=== PATIENT | female | born 1935 | race Caucasian/White ===

== ENCOUNTER 2017-06-04 18:52 | Observation (INO) | payer MEDICARE, BC ==
[~2017-06-04] VITALS: Ht 163.8 cm; Wt 96.2 kg
--- NOTE | ~2017-06-04 | DS ---
PATIENT:NICHOLAS WOLF :35 MEDICAL RECORD: [id number] DISCHARGE SUMMARY ADMISSION DATE: 06/04/17 DISCHARGE DATE: 06/05/17 DISCHARGE DIAGNOSES: 1. Angina. 2. Coronary artery disease. 3. Hypertension. 4. Hyperlipidemia. HOSPITAL COURSE: Mrs. Wolf presents with anginal symptomatology, found to have single vessel disease to the RCA, underwent successful PTCA stent of the RCA. Discharged home with the addition of Plavix times 30 days to her medical regimen. We will follow up with [facility] in 1 month. TRANSINT:[id number] Voice Confirmation ID: [id number] DOCUMENT ID: [id number] LOC DIALLO MD CC: [id number] DICTATION DATE: 06/05/171711 TOOL MACHINE SETUP OPERATOR: 06/06/17 0138 DIS IN 06/05/17 [facility] [address] [place] [address]
--- NOTE | ~2017-06-04 | HEMODYNAMI ---
PATIENT:NICHOLAS CARROLL MEDICAL RECORD: [id number] : 35 [id number] ADMISSION DATE: 06/04/17 Generatedon:06/05/201717:07 Patient name: NICHOLAS CARROLL Patient #: [id number] SSN: : 1935 Date of study: 06/05/2017 Page: Of Hemodynamic Procedure Report Patient Data Patient Demographics Procedure consent was obtained First Name: NICHOLAS Gender: Female Last Name: GLEN : 1935 Middle Initial: S Age: 81 year(s) Patient #: [id number] Race: Unknown Additional ID: [id number] Contact details [address]: [address] [place] [address] State: [place] City: [place] Zip code: [address] Past Medical History Allergies Allergen Reaction Date Comments Reported Other allergy 06/05/2017 PCN, Sulfa Admission Admission Data Admission Date: 06/04/2017 Admission Time: 22:51 Room #: D.2120 Height (in.): 64.5 BSA: 2.02 (m2) Height (cm.): 163.83 BMI: 35.99 (kg/m2) Weight (lbs.): 212.95 Weight (kg.): 96.59 Lab Results Lab Result Date: 06/05/2017 Lab Result Time: 0:00 Biochemistry Name Units Result Min Max BUN mg/dl 18 --(---*)-- 7 18 CK-MB ng/ml 0.7 --(*---)-- 0 3.6 Creatinine mg/dl 1.1 --(--*-)-- 0.6 1.3 Creatinine l 52 --(*---)-- 21 215 Kinase CBC Name Units Result Min Max Hemoglobin g/dl 13.4 -*(----)-- 13.5 17.5 Procedure Procedure Types Cath Procedure Diagnostic Procedure [facility] w/Coronaries FFR/IVUS Intra-Coronary IVUS Initial PCI Procedure Coronary Stent Initial Miscellaneous Procedures Moderate Sedation up to 15 minutes Procedure Description Procedure Date Procedure Date: 06/05/2017 Procedure Start Time: 16:47 Procedure End Time: 17:05 Procedure Staff Name Function Jason Alvarez MD Performing Physician Parrish Collins RT Scrub Lindy Fagan RT Monitor Donny Chen RT Monitor Joanne Gasca RN Nurse Procedure Data Cath Procedure Fluoroscopy Diagnostic fluoroscopy Total fluoroscopy Time: 3.8 time: 3.8 min min Diagnostic fluoroscopy Total fluoroscopy dose: 992 dose: 992 mGy mGy Contrast Material Contrast Material Type Amount (ml) Isovue 300 84 Entry Location Entry Primary Successful Side Size Upsize Upsize Entry Closure Sullivan ccessful Closure Location (Fr) 1 (Fr) 2 (Fr) Remarks Device Remarks Radial Right 6 Fr Mechanical TR band artery Short Compression Estimated blood loss: 10 ml Diagnostic catheters Device Type Used For End Catheter Placement Diagnostic Terumo 5Fr Procedure Stonewall 110cm catheter Procedure Complications No complications Procedure Medications Medication Administration Route Dosage Oxygen NC 2 l/min Lidocaine 2% added to field 20 Heparin Flush Bag added to field 2 bags (1000units/500ml NS) 0.9% NaCl I.V. 100 ml/hr Versed I.V. 1 mg Fentanyl I.V. 50 mcg Radial Cocktail I.A. 1 syringe (Verapomil 2mg/Nitro 400mcg/Heparin 1500units) Versed I.V. 1 mg Fentanyl I.V. 50 mcg Heparin Bolus I.V. 4000 units Hemodynamics Rest BSA: 2.02 (m2) HGB: 13.4 (g/dl) O2 Consumption: Estimated: 187.32 (ml/min) O2 Co nsumption indexed: Estimated:92.73 (ml/min/m) Heart Rate: 78 (bpm) Snapshots Pre Cath Intra NCS Post Cath Vital Signs Time Heart Resp SPO2 NIBP (mmHg) Rhythm Pain Sedation Rate (ipm) (%) Status Level (bpm) 16:37:55 77 16 96 149/76(118) NSR 0 (11) 10(A) , No pain 16:42:13 78 14 95 136/73(97) NSR 0 (11) 10(A) , No pain 16:46:27 79 15 95 130/69(100) NSR 0 (11) 10(A) , No pain 16:50:49 83 16 94 106/41(81) NSR 0 (11) 9(A) , No pain 16:54:53 82 16 95 114/64(83) NSR 0 (11) 9(A) , No pain 16:59:01 81 14 94 120/62(87) NSR 0 (11) 9(A) , No pain 17:03:09 81 16 94 96/77(84) NSR 0 (11) 10(A) , No pain Medications Time Medication Route Dose Verified Delivered Reason Note s Effectiveness by by 16:37:20 Oxygen NC 2 l/min Jason Buffie used for Antonio Gasca RN procedure 16:37:26 Lidocaine 2% added 20ml Jason Jason for local to vial Antonio Alvarez MD anesthetic field 16:37:33 Heparin Flush added 2 bags Jason Gomez used for Bag to Antonio Alvarez MD procedure (1000units/500ml field NS) 16:38:27 0.9% NaCl I.V. 100 Jason Rubio Per physician ml/hr Antonio Gasca RN 16:42:54 Versed I.V. 1 mg Jason Garciaie for sedation Antonio Gasca RN 16:43:01 Fentanyl I.V. 50 mcg Jason Garciaie for sedation Antonio Gasca RN 16:47:25 Radial Cocktail I.A. 1 Jason Gomez for (Verapomil syringe Antonio Alvarez MD vasodilation 2mg/Nitro 400mcg/Heparin 1500units) 16:47:45 Versed I.V. 1 mg Jason Garciaie for sedation Antonio Gasca RN 16:47:49 Fentanyl I.V. 50 mcg Jason Rubio for sedation Antonio Gasca RN 16:52:46 Heparin Bolus I.V. 4000 Jasonginger Garciaie for veri fied units Antonio Gasca RN anticoagulation with dr alvarez Procedure Log Time Note 16:14:56 Patient Height : 163.83 cm 16:15:03 Patient Weight : 96.59 kg 16:15:17 Procedure type changed to Cath procedure, Diagnostic procedure, LHC, C w/Coronaries, FFR/IVUS, Intra-Coronary IVUS Initial, PCI procedure, Coronary Stent Initial, Miscellaneous Procedures, Moderate Sedation up to 15 minutes 16:16:42 Lab Result : BUN 18 mg/dl 16:16:42 Lab Result : Creatinine Kinase 52 l 16:16:42 Lab Result : Hemoglobin 13.4 g/dl 16:16:42 Lab Result : Creatinine 1.1 mg/dl 16:16: Lab Result : CK-MB 0.7 ng/ml 16:16:56 Diagnostic Cath status Elective 16:17:03 Parrish Collins RT(R) sent for patient. Start room use. 16:17:04 Time tracking: Regular hours 16:17:09 Plan of Care:Hemodynamics will remain stable., Cardiac rhythm will remain stable., Comfort level will be maintained., Respiratory function will remain adequate., Patient/ family verbilizes understanding of procedure., Procedure tolerated without complication., Recovers from procedure without complications.. 16:17:44 Patient received from Med II to [facility] 2 Alert and oriented. Tansferred to table in Supine position. 16:23:27 Warm blankets applied, and janis hugger turned on for patient comfort. 16:23:27 Correct patient and procedure confirmed by team. 16:23:37 Signed procedure consent form obtained from patient. 16:23:43 H&P Date Dictated: 06/05/2017 Within 30 days and on chart.. 16:23:45 Pre-procedure instructions explained to patient. 16:23:52 Pre-op teaching completed and patient verbalized understanding. 16:23:53 Family in waiting room. 16:23:57 Patient NPO since Midnight. 16:24:37 Patient allergic to Other allergyPCN, Sulfa 16:24:41 Is the patient allergic to Iodine/contrast media? No. 16:24:49 Was the patient premedicated? Yes 16:24:53 Is patient on blood thinner?Yes 16:24:56 ACC The patient was administered the following blood thiners within the last 24 hours: ACCPlavix 16:25:16 Patient diabetic? No. 16:25:24 Snore? Yes 16:25:25 Sleep apnea? Yes 16:25:30 Airway obstruction? No ? 16:25:33 Dentures? No ? 16:25:54 IV patent on arrival in left forearm with 0.9% NaCl at [facility]. 16:26:21 Lab results completed and on chart. 16:26:28 Right Radial & Right Groin area was prepped with chlora-prep and draped in sterile fashion 16:: Alarms reviewed by R. N. 16::32 Sharps counted by scrub and verified by R.N. : Physician paged : Physician arrived 16:35:00 --------ALL STOP TIME OUT------ 16:35:08 Final Timeout: patient, procedure, and site verified with staff and physician. All members of the team are in agreement. 16:35:10 Right Radial & Right Groin site verified by team. 16:35:16 Sedation plan: IV Moderate Sedation Versed, Fentanyl 16:36:44 ECG and BP/O2 sat monitors applied to patient. 16:36:45 Vital chart was started 16:36:46 Baseline sample Acquired. 16:36:50 Full Disclosure recording started 16:36:58 Use device set Radial Dx 16:37:00 Acist Syringe opened to sterile field. 16:37:00 Medline Cath Pack opened to sterile field. 16:37:01 Bag Decanter opened to sterile field. 16:37:01 Terumo 6Fr Slender Glidesheath opened to sterile field. 16:37:02 St Ed 260cm J .035 wire opened to sterile field. 16:37:02 Acist Hand Control opened to sterile field. 16:37:03 Acist Manifold opened to sterile field. 16:37:03 Tegaderm 4 x 4 opened to sterile field. 16:37:04 MBrace Wrist Support opened to sterile field. 16:37:20 Oxygen 2 l/min NC was administered by Joanne Gasca RN; used for procedure; 16:37:26 Lidocaine 2% 20ml vial added to field was administered by Jason Alvarez MD; for local anesthetic; 16:37:33 Heparin Flush Bag (1000units/500ml NS) 2 bags added to field was administered by Jason Alvarez MD; used for procedure; 16:38:27 0.9% NaCl 100 ml/hr I.V. was administered by Joanne Gasca RN; Per physician; 16:42:54 Versed 1 mg I.V. was administered by Joanne Gasca RN; for sedation; 16:43:01 Fentanyl 50 mcg I.V. was administered by Joanne Gasca RN; for sedation; 16:46:45 Procedure started. 16:46:53 Zero performed for pressure channel P1 16:47:07 Local anesthetic to right radial artery with Lidocaine 2% by Jason Alvarez MD.INITIAL ACCESS ONLY 16:47:16 A 6 Fr Short sheath was inserted into the Right Radial artery 16:47:25 Radial Cocktail (Verapomil 2mg/Nitro 400mcg/Heparin 1500units) 1 syringe I.A. was administered by Jason Alvarez MD; for vasodilation; 16:47:41 A Diagnostic Terumo 5Fr Stonewall 110cm catheter was advanced over the wire and used for Procedure. 16:47:45 Versed 1 mg I.V. was administered by Joanne Gasca RN; for sedation; 16:47:47 LV angiography performed. 16:47:49 Fentanyl 50 mcg I.V. was administered by Joanne Gasca RN; for sedation; 16:48:15 EF : 60 % 16:48:18 LCA angiography performed. 16:49:31 RCA angiography performed. 16:49:34 Catheter removed. 16:52:16 Azul Whisper J 300cm 0.014 guide wire opened to sterile field. 16:52:17 [place] Eagleye IVUS Catheter opened to sterile field. 16:52:18 BillGuardtronic Launcher 6Fr [place] 1.0 guide catheter opened to sterile field. 16:52:19 [employer] BasixCompak Inflation Kit opened to sterile field. 16:52:39 6 Fr AR1 guide catheter was inserted over the wire 16:52:41 Wire advanced across lesion. 16:52:46 Heparin Bolus 4000 units I.V. was administered by Joanne Gasca RN; for anticoagulation; verified with dr alvarez 16:52:50 IVUS catheter advanced over wire. 16:53:03 IVUS pass to RCA lesion performed. 16:58:24 IVUS catheter removed over wire. 16:59:39 expiration 08/08/2017 17:00:44 Inflation Number: 1 A Biofreedom 4.0 X 8 stent (No Cost Implant) was prepped and advanced across the Mid RCA. The stent was deployed at 17 MART[address]NE[address] for 0:09 (min:sec). 17:01:19 Stent catheter was removed intact over wire. 17:01:20 Wire removed. 17:01:21 Guide catheter removed. 17:01:41 Sheath removed intact; hemostasis achieved with Mechanical Compression to the Right Radial artery. 17:01:55 Procedure ended.(Physican Out) 17:02:15 Fluoroscopy time 03.80 minutes. 17:02:20 Fluoroscopy dose: 992 mGy 17:02:20 Flurop Dose total: 992 17:02:24 Contrast amount:Isovue 300 84ml. 17:02:26 Sharps counted by scrub and verified by R.N. 17:02:31 TR band inflated with 12cc of air. 17:02:33 Insertion/operative site no bleeding no hematoma. 17:02:50 Post right radial artery:stable 17:02:56 Post Procedure Pulses reassessed and unchanged 17:03:03 Post-procedure physical assessment completed. ASA score P 2 - A patient with mild systemic disease as per Jason Alvarez MD. 17:03:06 Estimated blood loss: 10 ml 17:03:08 Post procedure instruction explained to patient.Patient verbalizes understanding. 17:03:53 Procedure and supply charges have been captured, reviewed, submitted and are correct. 17:05:00 Procedure Complication : No complications 17:05:03 Vital chart was stopped 17:05:03 See physician's report for complete and final results. 17:05:09 Report given to Pre/Post Procedure Room. 17:05:15 Patient transfered to [facility] with Bed. 17:05:18 Procedure ended. 17:05:18 Full Disclosure recording stopped 17:05:21 End room use (Document Last) 17:07:30 ACC-PCI Only Patient was given prescriptions, or instructed by Jason Alvarez MD to start/continue the following medications upon discharge: Plavix Intervention Summary Intervention Notes Time ActionType Lesion and Equipment Action# Pressure Duration Attributes Used 17:00:44 Place stent Mid RCA Biofreedom 1 17 00:09 4.0 X 8 stent (No Cost Implant) Device Usage Item Name Manufacture Quantity Catalog Hospital Part Current Minimal Lot# / Number Charge Number Stock Stock Serial# Code Acist Acist 1 85901 603352 436337 099676 20 Syringe Medical Systems Inc Medline Cardinal 1 [id number] 550587 37501 599904 5 Cath Pack Health Bag Microtek 1 2001S 7455960 93670 517285 5 Wide Limited Release Film Distribution Fund [employer] Inc. Terumo 6Fr Terumo 1 [id number] 771810 390070 380819 [address] St Ed 1 590073 662624 010560 026035 30 260cm J .035 wire Acist Hand Acist 1 45863 182319 115311 800960 5 Control Medical Systems Inc Acist Acist 1 29904 824439 572760 282347 5 Manifold Medical Systems Inc Tegaderm 4 3M 1 1626W 542234 265610 524559 5 x 4 MBrace Advanced 1 140-0250-00 822466 96469 365147 5 Wrist Vascular Support Dynamics Diagnostic Terumo 1 40-4243 595432 815486 841898 5 Terumo 5Fr Stonewall 110cm catheter Azul Azul 1 [id number] 483719 973039 826757 5 Whisper J Vascular 300cm 0.014 guide wire Longford Longford 1 05756G 289742 071039 100185 [address] Eagley[place] IVUS Catheter Medtronic Medtronic 1 [id number] 286358 38439 220622 1 Launcher 6Fr [place] 1.0 guide catheter [facility] 1 [id number] 001539 754554 141794 15 Vaultize Medical Inflation Kit Biofreedom Biosensors 1 BFRC2-1649 350786 876596 5 [id number] 4.0 X 8 [place] SA stent (No Cost Implant) Signature Audit [place] Stage Time Signature Unsigned Intra-Procedure 06/05/2017 Lindy Fagan 5:07:47 PM RT(R) Signatures Monitor : Lindy Fagan Signature : RT Date : Time : Monitor : Donny Chen RT Signature : Date : Time : [place] [id number] [place] [address]
--- NOTE | ~2017-06-04 | OP ---
PATIENT NAME: NICHOLAS CARROLL MEDICAL RECORD: [id number] :35 LOCATION:D.M2 D.2119 ADMISSION DATE:06/04/17 SURGEON: LOC DIALLO MD DATE OF OPERATION: 06/05/2017 PROCEDURES: 1. PTCA stent RCA. 2. Intravascular ultrasound RCA. 3. Left heart catheterization. 4. Selective coronary angiography. 5. Left ventriculogram. INDICATION: Angina and coronary artery disease. PROCEDURE IN DETAIL: After informed consent was obtained and after detailed explanation of risks, benefits as well as alternative therapies, the patient elected to proceed with angiogram and angioplasty. The right radial area was prepped and draped in normal sterile fashion. The right radial artery was cannulated via modified Seldinger technique with placement of 6-Nepali sheath. All catheters exchanged through this sheath. FINDINGS: Left ventriculogram was performed in standard 30-degree PATEL view, reveals good cardiac wall motion throughout all segments. Overall ejection fraction is 60%. SELECTIVE CORONARY ANGIOGRAPHY: 1. Left main has no significant angiographic disease. 2. Left anterior descending has mild irregularities, but no flow-limiting stenosis. 3. Left circumflex has mild irregularities, but no flow-limiting stenosis. 4. Right coronary has previously placed stent in the mid vessel, there is 71% in-stent restenosis confirmed by intravascular ultrasound. PTCA STENT OF THE RCA: The stent used is 4.0 x 8 mm BioFreedom stent. The lesion was a 6-mm lesion. ANTONELLA 3 flow before and after. Result was 0% residual stenosis. OVERALL IMPRESSION: Successful percutaneous transluminal coronary angioplasty stent of the right coronary artery going from 71% initial stenosis confirmed by intravascular ultrasound to 0% residual stenosis. TRANSINT:[id number] Voice Confirmation ID: [id number] DOCUMENT ID: [id number] LOC DIALLO MD CC: [id number] DICTATION DATE: 06/05/171710 SKY DIVER: 06/05/172125 DIS IN 06/05/17 [place] [id number] [place] [id number]
[~2017-06-04 18:52] MED LIST: ASPIRIN 81 MG E81 MG PO; ATENOLOL25 MG NG; BENADRYL25 MG PO; CARAFATE1 G/10 ML PO; COZAAR50 MG PO; DYAZIDE 37.5/251 CAP PO; EFFIENT5 MG PO; EYE CAPS POINH; KLOR-CON 1010 MEQ PO; LIPITOR10 MG PO; LIPITOR20 MG PO; LOZOL1.25 MG PO; PLAVIX75 MG PO; PRAVASTATIN SOD10 MG PO; PREDNISONE10 MG PO; PRINIVIL20 MG PO; PROTONIX40 MG PO; SYNTHROID125 MCG PO; TENORMIN25 MG PO; TENORMIN50 MG PO; VESICARE5 MG PO; VISTARIL25 MG PO; VITAMIN B-12500 MCG PO; VITAMIN D31000 UNIT PO; VITAMIN E200 UNI1 PO
[2017-06-04 19:23] LABS: BASOPHILS 0.8 % (0-2); EOSINOPHILS 4.3 % (0-7); HEMATOCRIT 40.9 % (36.0-48.0); HEMOGLOBIN 13.4 g/dL (12-16); IMMATURE GRANULOCYTES 0.2 % (0-5); LYMPHOCYTES 30.7 % (15-50); MCHC 32.8 g/dL (31.0-37.0); MCV 91.7 fL (80.0-100.0); MEAN PLATELET VOLUME 9.9 fL (7.4-10.4); PLATELET COUNT 201 10x3/uL (130-400); RBC 4.46 10x6/uL (4.00-5.40); RDW 13.8 % (11.5-14.5); WBC 6.5 10x3/uL (4.8-10.8)
[2017-06-04 19:38] LABS: ALBUMIN 3.6 g/dL (3.4-5.0); ALKALINE PHOSPHATASE 99 U/L (46-116); ALT (SGPT) 21 U/L (10-68); BILIRUBIN - TOTAL 0.27 mg/dL (0.2-1.3); CALC OSMOLALITY 278 mosm/kg (275-300); CALCIUM 9.1 mg/dL (8.5-10.1); CARBON DIOXIDE 30.7 mmol/L (21.0-32.0); CHLORIDE - SERUM 102 mmol/L (98-107); CREATININE - SERUM 1.1 mg/dL (0.6-1.3); GLUCOSE 116 mg/dL (74-106); POTASSIUM - SERUM 3.6 mmol/L (3.5-5.1); PROTEIN - SERUM 7.3 g/dL (6.4-8.2); SODIUM 138 mmol/L (136-145); UREA NITROGEN 18 mg/dL (7-18); eGFR NON AFRICAN AMERICAN 50 mL/min (90-120)
[2017-06-04 19:46] LABS: INR 1.1 (0.85-1.17); PROTIME 14.1 SECONDS (11.6-15.0)
[2017-06-04 19:47] LABS: APTT 51.7 SECONDS (22.8-39.4); D-DIMER-QUANTITATIVE 2.44 ug/mLFEU (0.20-0.54)
[2017-06-04 19:48] LABS: CHOL - HDL RATIO 2.7 ratio (2.3-4.1); CHOLESTEROL, TOTAL 148 mg/dL (0-200); CKMB 0.7 U/L (0.0-3.6); CREATINE KINASE 61 UL (21-215); HDL CHOLESTEROL 54 mg/dL (32-96); LDL CHOLESTEROL 55 mg/dL (0-100); PRO BNP 149 pg/mL (0-450); TRIGLYCERIDE 195 mg/dL (30-200); TROPONIN-I < 0.017 ng/mL (0.000-0.060)
--- NOTE | 2017-06-04 23:04 | NUR ---
RECEIVED REPORT FROM KYLE DE IN ER.
--- NOTE | 2017-06-04 23:10 | NUR ---
RECEIVED TO ROOM 2120 FROM ER. ALERT/ORIENTED AND AMBULATORY. ADMISSION ASSESSMENT AND HISTORY COMPLETED. HOME MEDS REVIEWED AND UPDATED. PT IS LEGALLY BLIND. CALL LIGHT IN HAND. INITIATE PLAM OF CARE.
[2017-06-04 23:23] LABS: CKMB 0.7 U/L (0.0-3.6); CREATINE KINASE 52 UL (21-215)
[2017-06-04 23:25] LABS: TROPONIN-I < 0.017 ng/mL (0.000-0.060)
[2017-06-04] MEDS ORDERED: SYNTHROID112 MCG PO (23:46)
[2017-06-05] VITALS: BP 151/55
[2017-06-05 00:51] VITALS: BMI 35.5
[2017-06-05 04:00] VITALS: BP 125/40
[2017-06-05 05:43] LABS: CKMB 0.4 U/L (0.0-3.6); CREATINE KINASE 50 UL (21-215)
[2017-06-05 05:48] LABS: TROPONIN-I < 0.017 ng/mL (0.000-0.060)
--- NOTE | 2017-06-05 08:09 | NUR ---
ASSESSMENT DONE. DENIES NEEDS.
[2017-06-05 09:04] LABS: BASOPHILS 0.8 % (0-2); EOSINOPHILS 4.9 % (0-7); HEMATOCRIT 38.2 % (36.0-48.0); HEMOGLOBIN 12.6 g/dL (12-16); IMMATURE GRANULOCYTES 0.2 % (0-5); LYMPHOCYTES 32.8 % (15-50); MCH 30.2 pg (26.0-34.0); MCV 91.6 fL (80.0-100.0); MEAN PLATELET VOLUME 10.6 fL (7.4-10.4); MONOCYTES 11.8 % (2-11); NEUTROPHILS 49.5 % (40-80); PLATELET COUNT 190 10x3/uL (130-400); RBC 4.17 10x6/uL (4.00-5.40); WBC 5.2 10x3/uL (4.8-10.8)
[2017-06-05 09:11] VITALS: BP 115/50
--- NOTE | 2017-06-05 09:53 | NUR ---
RESTS IN BED WITH CALL LIGHT IN REACH. FAMILY MEMBER AT BS. LARISSA NEEDS AT THIS TIME. WILL MONITOR.
[2017-06-05 10:24] LABS: ANION GAP 12.1 mmol/L (8-16); CALCIUM 9.6 mg/dL (8.5-10.1); POTASSIUM - SERUM 4.1 mmol/L (3.5-5.1)
[2017-06-05 12:00] VITALS: BP 128/70
[2017-06-05 13:37] VITALS: Ht 163.8 cm; Wt 96.2 kg
[2017-06-05 16:00] VITALS: BP 125/53
--- NOTE | 2017-06-05 17:29 | NUR ---
RECIVED FROM PRESS MACHINE FEEDER PER BED. TR-BAND TO RT WRIT. NO BLEEDING NOTED.
--- NOTE | 2017-06-05 17:40 | NUR ---
AT SIDE. WITHOUT CHANGES OR DISTRESS NOT AT THIS TIME. DENIES NEEDS
--- NOTE | 2017-06-06 07:03 | HP ---
PATIENT: NICHOLAS CARROLL MEDICAL RECORD: [id number] ACCOUNT: [id number] LOCATION:[address] : 35 ADMISSION DATE: 06/04/17 HISTORY AND PHYSICAL EXAMINATION DATE OF ADMISSION: 06/04/2017 CHIEF COMPLAINT: Chest pain. HISTORY OF PRESENT ILLNESS: The patient is an 81-year-old female, who has had a history of having 4 stents placed. She states over the past week, she has had intermittent substernal chest pain; this worsened on Monday as well as on Monday. She presented to the Emergency Room. PAST MEDICAL HISTORY: Significant that she has had appendectomy and tonsillectomy. She has had 4 cardiac catheterizations, 2013 was the last one. She had a colonoscopy, had a history of osteoarthritis. She has had left hip DJD. SOCIAL HISTORY: She is a 2-year college educated female, who is . She stopped smoking in 1991. Currently, resides with her here in [facility]. She is . MEDICATIONS: Include hydrocodone 10/325 one p.o. q.4 hours p.r.n. severe pain, losartan 50 mg 1 p.o. q. day, KCl 10 mEq once a day, pravastatin 20 mg once a day, Premarin 0.625 vaginally twice weekly, Synthroid 112 mcg, triamterene 37.5/25 one p.o. q. day, VESIcare 5 mg once a day. ALLERGIES: LEVOTHYROXINE, PENICILLIN AND SULFA. REVIEW OF SYSTEMS: CONSTITUTIONAL: She denies any headaches, seizures, or syncope. She denies change in visual or auditory acuity. PULMONARY: She denies any shortness of breath, cough, congestion, history of TB, asthma, or bronchitis. CARDIOVASCULAR: No chest pain, palpitation, PND or orthopnea. GASTROINTESTINAL: No chronic nausea, vomiting, melena or hematochezia. GENITOURINARY: No urgency, frequency, or dysuria. PHYSICAL EXAMINATION: GENERAL: She is a well-nourished, well-developed female, who is in no acute distress. VITAL SIGNS: Her blood pressure 132/56, temperature 97.4, pulse 76. HEENT: Normal. NECK: Supple. There is no adenopathy. HEART: Has a regular rate and rhythm. No murmurs, gallops or rubs. LUNGS: Clear. ABDOMEN: Soft, bowel sounds are positive. LABORATORY DATA: She had a normal EKG. She had negative troponins. ASSESSMENT: Substernal chest pain, possible angina, history of arteriosclerotic heart disease with hyperlipidemia, hypertension and hypothyroidism. PLAN: The patient will be admitted. Cardiology consultation will be obtained. HISTORY AND PHYSICAL [id number] GLENNICHOLAS The patient will need to have a cardiac catheterization. TRANSINT:[id number] Voice Confirmation ID: [id number] DOCUMENT ID: [id number] SKYE TATE MD at 0703 CC: [id number] DICTATION DATE: 06/05/17 08 DIESEL ENGINE ENGINEER: 06/05/17 0943 DIS IN 06/05/17 [place] [id number] [place] [address]
== END 2017-06-05 21:05 | disposition home or self-care (01) ==
LOC: D.ER 18:52 → D.M2 22:51 → OBSVTIME 22:52 → D.M2 06-05 21:05
PROVIDERS: Emergency Medicine; Family Medicine; Internal Medicine Interventional Cardiology; ADMIT Family Medicine
DX: I25.119 Atherosclerotic heart disease of native coronary artery with unspecified angina pectoris (principal); Z87.891 Personal history of nicotine dependence; I10 Essential (primary) hypertension; E78.5 Hyperlipidemia, unspecified; E03.9 Hypothyroidism, unspecified; Z00.6 Encounter for examination for normal comparison and control in clinical research program; Z86.73 Personal history of transient ischemic attack (TIA), and cerebral infarction without residual deficits; G47.30 Sleep apnea, unspecified
CPT/HCPCS: 93458; 92978; C9600

== ENCOUNTER → 2017-12-08 17:00 | Outpatient (CLI) | payer MEDICARE, BC ==
[2017-06-05 13:37] VITALS: BMI 35.8
[~2017-12-08 17:00] MED LIST changes: +SYNTHROID112 MCG PO
== END | disposition home or self-care (01) ==
LOC: D.MAMMO 09-25 11:15
DX: Z12.31 Encounter for screening mammogram for malignant neoplasm of breast (principal)

== ENCOUNTER → 2018-01-29 12:04 | Outpatient (CLI) | payer MEDICARE, BC ==
[2017-06-05 13:37] VITALS: BMI 35.8
== END | disposition home or self-care (01) ==
LOC: D.CT 12:00
DX: M25.552 Pain in left hip (principal)

== ENCOUNTER 2018-12-24 09:19 | Outpatient (CLI) | payer MEDICARE, BC ==
[~2018-12-24] VITALS: Ht 163.8 cm; Wt 101.4 kg
--- NOTE | ~2018-12-24 | HEMODYNAMI ---
PATIENT:NICHOLAS CARROLL MEDICAL RECORD: [id number] : 35 LOCATION:[facility] ADMISSION DATE: 12/24/18 Generatedon:12/24/201814:40 Patient name: NICHOLAS CARROLL Patient #: [id number] SSN: : 1935 Date of study: 12/24/2018 Page: Of Hemodynamic Procedure Report Patient Data Patient Demographics Procedure consent was obtained First Name: NICHOLAS Gender: Female Last Name: GLEN : 1935 [facility] Initial: S Age: 83 year(s) Patient #: [id number] Race: Unknown Additional ID: [id number] Contact details [address]: [address] [place] [address] State: [place] City: [place] Zip code: [address] Past Medical History Allergies Allergen Reaction Date Comments Reported Other allergy 06/05/2017 PCN, Sulfa Other allergy 12/24/2018 PCN, SULFA Admission Admission Data Admission Date: 12/24/2018 Admission Time: 9:19 Admit Source: Other Lab Results Lab Result Date: 12/24/2018 Lab Result Time: 10:01 Biochemistry Name Units Result Min Max BUN mg/dl 27 --(----)-* 7 18 Creatinine mg/dl 0.9 --(-*--)-- 0.6 1.3 CBC Name Units Result Min Max Hematocrit % 41.7 -*(----)-- 42 54 Hemoglobin g/dl 13.9 --(*---)-- 13.5 17.5 Procedure Procedure Types Cath Procedure Diagnostic Procedure LHC LHC w/Coronaries Procedure Description Procedure Date Procedure Date: 12/24/2018 Procedure Start Time: 14:28 Procedure End Time: 14:36 Procedure Staff Name Function Jason Alvarez MD Performing Physician Donny Chen RT Monitor Imani Becker RT Scrub Joanne Gasca RN Nurse Tj Rodriguez RN Equip Tech Procedure Data Cath Procedure Fluoroscopy Diagnostic fluoroscopy Total fluoroscopy Time: 0.9 time: 0.9 min min Diagnostic fluoroscopy Total fluoroscopy dose: 392 dose: 392 mGy mGy Contrast Material Contrast Material Type Amount (ml) Isovue 300 46 Entry Location Entry Primary Successful Side Size Upsize Upsize Entry Closure Succes sful Closure Location (Fr) 1 (Fr) 2 (Fr) Remarks Device Remarks Femoral Right 5 Fr Exoseal artery Estimated blood loss: 5 ml Diagnostic catheters Device Type Used For End Catheter Placement MULTIPACK Pigtail 5 Fr Procedure catheter MULTIPACK JL 4.0 5Fr Procedure catheter MULTIPACK 3DRC 5Fr Procedure catheter Procedure Complications No complications Procedure Medications Medication Administration Route Dosage Oxygen etCO2 Nasal cannula 2 l/min Lidocaine 2% added to field 20 Heparin Flush Bag added to field 2 bags (1000units/500ml NS) 0.9% NaCl I.V. 100 ml/hr Versed I.V. 1 mg Fentanyl I.V. 50 mcg Versed I.V. 1 mg Fentanyl I.V. 50 mcg Hemodynamics Rest HGB: 13.9 (g/dl) Heart Rate: 73 (bpm) Snapshots Pre Cath Intra NCS Post Cath Vital Signs Time Heart Resp SPO2 etCO2 NIBP Rhythm Pain Sedation Rate (ipm) (%) (mmHg) (mmHg) Status Level (bpm) 14:21:33 72 15 94 22.7 128/58(91) NSR 0 (11) 10(A) , No pain 14:25:37 72 11 92 40.8 110/50(85) NSR 0 (11) 10(A) , No pain 14:30:03 74 26 96 0 106/47(79) NSR 0 (11) 9(A) , No pain 14:34:27 73 15 95 0 113/48(74) NSR 0 (11) 9(A) , No pain 14:37:36 77 14 95 34 106/48(73) NSR 0 (11) 10(A) , No pain Medications Time Medication Route Dose Verified Delivered Reason Notes Eff ectiveness by by 14:22:23 Oxygen etCO2 2 Jason Buffie used for Nasal l/min Antonio Gasca RN procedure cannula 14:22:32 Lidocaine 2% added 20ml Jason Gomez for local to vial Antonio Alvarez MD anesthetic field 14:22:45 Heparin Flush added 2 Jason Buffie used for Bag to bags Antonio Gasca RN procedure (1000units/500ml field NS) 14:23:23 0.9% NaCl I.V. 100 Jaosn Rubio Per ml/hr Antonio Gasca RN physician 14:24:13 Versed I.V. 1 mg Jason Rubio for Antonio Gasca RN sedation 14:24:19 Fentanyl I.V. 50 Jason Garciaie for joss Gasca RN sedation 14:30:02 Fentanyl I.V. 50 Jason Rubio for joss Gasca RN sedation 14:30:58 Versed I.V. 1 mg Jason Rubio for Antonio Gasca RN sedation Procedure Log Time Note 13:54:16 Informed consent obtained and on chart 13:54:20 Admit Source: Other 13:54:38 Diagnostic Cath status Elective 13:54:50 Tj Rodriguez RN sent for patient. Start room use. 13:54:50 Time tracking: Regular hours (M-F 7:00 - 5:00) 13:54:56 Plan of Care:Hemodynamics will remain stable., Cardiac rhythm will remain stable., Comfort level will be maintained., Respiratory function will remain adequate., Patient/ family verbilizes understanding of procedure., Procedure tolerated without complication., Recovers from procedure without complications.. 13:58:23 Lab Result : BUN 27 mg/dl 13:58:23 Lab Result : Creatinine 0.9 mg/dl 13:58:23 Lab Result : Hematocrit 41.7 % 13:58:23 Lab Result : Hemoglobin 13.9 g/dl 13:58:26 Lab results completed and on chart. 14:06:44 Patient received from ED to CCL 1 Alert and oriented. Tansferred to table in Supine position. 14:06:45 Warm blankets applied, and janis hugger turned on for patient comfort. 14:06:46 Correct patient and procedure confirmed by team. 14:06:47 ECG and BP/O2 sat monitors applied to patient. 14:06:49 Pre-procedure instructions explained to patient. 14:06:49 Pre-op teaching completed and patient verbalized understanding. 14:20:09 Vital chart was started 14:20:10 Baseline sample Acquired. 14:20:12 Rhythm: sinus rhythm 14:20:14 Full Disclosure recording started 14:20:22 H&P Date Dictated: 12/24/2018 Within 30 days and on chart., New H&P dictated by physician.. 14:20:26 Family in waiting room. 14:20:28 Patient NPO since Midnight. 14:20:51 Patient allergic to Other allergyPCN, SULFA 14:20:52 Is the patient allergic to Iodine/contrast media? No. 14:20:53 Is patient on blood thinner?Yes 14:20:55 ACC The patient was administered the following blood thiners within the last 24 hours: ACCPlavix 14:20:59 Patient diabetic? No. 14:21:02 Previous problem with sedation/anesthesia? No ? 14:21:05 Snore? Yes 14:21:05 Sleep apnea? Yes 14:21:06 Deviated septum? No 14:21:07 Opens mouth fully? Yes 14:21:08 Sticks out tongue? Yes 14:21:10 Airway obstruction? No ? 14:21:12 Dentures? No ? 14:21:15 Pre procedure: right dorsailis pedis pulse 2+ Normal; easily identifiable; not easily obliterated 14:21:17 Patient pain scale 0/10 ?. 14:21:24 IV patent on arrival in right wrist with 0.9% NaCl at [facility]. 14:21:28 Right groin area was prepped with chlora-prep and draped in sterile fashion 14:21:29 Alarms reviewed by R. N. 14:21:29 Sharps counted by scrub and verified by R.N. 14:21:32 ACIST Syringe (91471) opened to sterile field. 14:21:33 Medline Cath Pack ([id number]) opened to sterile field. 14:21:33 Bag Decanter (2001S) opened to sterile field. 14:21:34 ACIST Hand Control (26786) opened to sterile field. 14:21:34 ACIST Manifold (43117) opened to sterile field. 14:21:35 Tegaderm 4 x 4 (1626W) opened to sterile field. 14:21:35 MBrace Wrist Support ([id number]) opened to sterile field. 14:21:36 SHEATH 6FR Slender (84-9042) opened to sterile field. 14:21:37 DIAGNOSTIC WIRE .035 260cm J wire (239814) opened to sterile field. 14:22:23 Oxygen 2 l/min etCO2 Nasal cannula was administered by Joanne Gasca RN; used for procedure; 14::32 Lidocaine 2% 20ml vial added to field was administered by Jason Alvarez MD; for local anesthetic; 14::45 Heparin Flush Bag (1000units/500ml NS) 2 bags added to field was administered by Joanne Gasca RN; used for procedure; 14:23:03 Physician arrived 14::03 --------ALL STOP TIME OUT------ 14::04 Final Timeout: patient, procedure, and site verified with staff and physician. All members of the team are in agreement. 14:23:05 Right groin site verified by team. 14:23:08 Fire Safety Assessment: A--An alcohol-based skin anteseptic being used preoperatively., C--Open oxygen or nitrous oxide is being used., D--An ESU, laser, or fiber-optic light is being used. 14:23:11 Physical assessment completed. ASA score P 2 - A patient with mild systemic disease as per Jason Alvarez MD. 14:23:13 Sedation plan: IV Moderate Sedation Medication:Versed, Fentanyl 14::23 0.9% NaCl 100 ml/hr I.V. was administered by Joanne Gasca RN; Per physician; 14:: Versed 1 mg I.V. was administered by Joanne Gasca RN; for sedation; 14:24:19 Fentanyl 50 mcg I.V. was administered by Joanne Gasca RN; for sedation; 14:27:56 Procedure started. 14:28:10 Local anesthetic to right femoral artery with Lidocaine 2% by Jason Alvarez MD.INITIAL ACCESS ONLY 14:28:26 A 5 Fr sheath was inserted into the Right Femoral artery 14:29:05 Use device set Multipack Set 14:29:12 DIAGNOSTIC Multipack 5Fr catheter set ([id number]) opened to sterile field. 14:29:18 SHEATH 5FR [place] (NES326) opened to sterile field. 14:29:21 A MULTIPACK Pigtail 5 Fr catheter was advanced over the wire and used for Procedure. 14:29:25 LV gram done using PATEL 14:: Injector settings: Ml/sec: 10, Volume: 20, ::29 LV hemodynamics recorded. 14:29:33 EF : 60 % 14:29:34 Catheter exchanged over wire. 14:29:45 A MULTIPACK JL 4.0 5Fr catheter was advanced over the wire and used for Procedure. 14:30:02 Fentanyl 50 mcg I.V. was administered by Joanne Gasca RN; for sedation; 14:30:15 LCA angiography performed. 14:30:47 Catheter exchanged over wire. 14:30:54 A MULTIPACK 3DRC 5Fr catheter was advanced over the wire and used for Procedure. 14:30:58 Versed 1 mg I.V. was administered by Joanne Gasca RN; for sedation; 14:31:25 RCA angiography performed. 14:32:09 Catheter removed. 14:32:31 EXOSEAL 5Fr (EX500) opened to sterile field. 14:32:39 Sheath removed intact; hemostasis achieved with Exoseal to the Right Femoral artery. 14:32:41 Procedure ended.(Physican Out) 14:32:49 Fluoroscopy time 00.90 minutes. 14:32:53 Fluoroscopy dose: 392 mGy 14:32:53 Flurop Dose total: 392 14:32:56 Contrast amount:Isovue 300 46ml. 14:32:58 Sharps counted by scrub and verified by R.N. 14:32:59 Insertion/operative site no bleeding no hematoma. 14:33:36 Post-op/insertion site Right Femoral artery dressed using a 4 x 4 and Tegaderm. 14:33:39 Post right femoral artery:stable, soft, clean and dry 14:33:41 Post Procedure Pulses reassessed and unchanged 14:33:43 Post-procedure physical assessment completed. ASA score P 2 - A patient with mild systemic disease as per Jason Alvarez MD. 14:33:45 Post procedure rhythm: unchanged. 14:34:20 Estimated blood loss: 5 ml 14:34:22 Post procedure instruction explained to patient.Patient verbalizes understanding. 14:34:22 Patient needs reinforcement of post procedure teaching. 14:36:05 Procedure and supply charges have been captured, reviewed, submitted and are correct. 14:36:09 Procedure Complication : No complications 14:36:10 Vital chart was stopped 14:36:11 See physician's report for complete and final results. 14:36:18 Report given to Pre/Post Procedure Room. 14:36:21 Patient transfered to Pre/Post Procedure Room with Stretcher. 14:36:27 Procedure ended. 14:36:27 Full Disclosure recording stopped 14:36:31 End room use (Document Last) Device Usage Item Name Manufacture Quantity Catalog Hospital Part Current Minimal Lot# / Number Charge Number Stock Stock Serial# Code ACIST Acist 1 99992 342594 036923 600795 20 Syringe Medical (37905) Systems Inc Medline Medline 1 [id number] 754170 09454 985495 5 Cath Pack ([id number]) Bag Microtek 1 703636 39781 135810 5 Decanter Medical Inc. () ACIST Hand Acist 1 92364 319935 470203 773948 5 Control Medical (05546) Systems Inc ACIST Acist 1 61616 188875 646288 509064 5 Manifold Medical (92551) Systems Inc Tegaderm 4 3M 1 1626W 326972 438415 845054 5 x 4 (1626W) MBrace Advanced 1 140-0250-00 487991 37846 727562 5 Wrist Vascular Support Dynamics ([id number]) SHEATH 6FR Terumo 1 [id number] 575978 616636 915261 5 Slender (80-1060) DIAGNOSTIC St Ed 1 295372 957862 444612 035815 30 WIRE .035 260cm J wire (930900) DIAGNOSTIC Cardinal 1 [id number] 465157 05305 948368 30 Multipack Health 5Fr catheter set (AJ0236) SHEATH 5FR Terumo 1 [id number] 050650 259305 124138 5 [place] (CRU775) MULTIPACK Cardinal 1 627977 5 Pigtail 5 Health Fr catheter MULTIPACK Cardinal 1 993903 5 JL 4.0 5Fr Health catheter MULTIPACK Cardinal 1 940537 5 3DRC 5Fr Health catheter EXOSEAL 5Fr Cardinal 1 EX500 948820 940504 846989 10 (EX500) Health Signature Audit [place] Stage Time Signature Unsigned Intra-Procedure 12/24/2018 Donny Chen 2:40:16 PM RT(R) Signatures Monitor : Donny Chen RT Signature : Date : Time : [facility] [address] [place] [address]
--- NOTE | ~2018-12-24 | OP ---
PATIENT NAME: NICHOLAS CARROLL MEDICAL RECORD: [id number] :35 LOCATION:D.CAT ADMISSION DATE: SURGEON: LOC DIALLO MD DATE OF OPERATION: 12/24/2018 PROCEDURES: 1. Left heart catheterization. 2. Selective coronary angiography. 3. Left ventriculogram. INDICATION: Angina and coronary artery disease. PROCEDURE IN DETAIL: After informed consent was obtained with detailed description of risks and benefits as well as alternative therapies, the patient elected to proceed with angiogram and angioplasty. The right femoral area was prepped and draped in normal sterile fashion. The right femoral artery was cannulated via modified Seldinger technique with placement of 6-Turkish sheath. All catheters were exchanged through this sheath. FINDINGS: Left ventriculogram performed in standard 30-degree PATEL view reveals good cardiac wall motion throughout all segments. Overall ejection fraction is estimated at 60%. SELECTIVE CORONARY ANGIOGRAPHY: 1. Left main has no significant angiographic disease. 1. Left anterior descending has moderate irregularities, but no flow-limiting stenosis. 2. Left circumflex has previously placed stent that is widely patent with no significant restenosis. No disease else ryan of the circumflex or its branches. 3. Right coronary has previously placed stents. These are widely patent with no significant restenosis. No disease else ryan of the RCA or its branches. OVERALL IMPRESSION: Wide patency of all the previously placed stents. No new disease. Continue medical management for coronary artery disease and cardiac risk factors. TRANSINT:[id number] Voice Confirmation ID: [id number] DOCUMENT ID: [id number] LOC DIALLO MD CC: [id number] DICTATION DATE: 12/24/18 1441 [place] COUNSEL: 12/24/18 1837 DEP CLI 12/24/18 [facility] [address] [place] [id number]
[2018-12-24 09:27] VITALS: Ht 163.8 cm; Wt 101.4 kg
[2018-12-24] MEDS ORDERED: VITAMIN B-12500 MCG PO (10:04)
[2018-12-24] MEDS ORDERED: KLOR-CON M2020 MEQ PO (10:05)
[2018-12-24] MEDS ORDERED: DETROL LA4 MG PO (10:05)
[2018-12-24] MEDS ORDERED: MAXZIDE 75/501 TAB PO (10:06)
[2018-12-24] MEDS ORDERED: I-CAPS (10:06)
[2018-12-24] MEDS ORDERED: BAYER CHEWABLE81 MG PO (10:07)
[2018-12-24] MEDS ORDERED: VITAMIN D2000 UNIT PO (10:07)
[2018-12-24 10:12] LABS: EOSINOPHILS 1.5 % (0-7); HEMATOCRIT 41.7 % (36.0-48.0); HEMOGLOBIN 13.9 g/dL (12-16); IMMATURE GRANULOCYTES 0.4 % (0-5); LYMPHOCYTES 20.7 % (15-50); MCH 30.8 pg (26.0-34.0); MCHC 33.3 g/dL (31.0-37.0); MCV 92.3 fL (80.0-100.0); MEAN PLATELET VOLUME 9.9 fL (7.4-10.4); MONOCYTES 11.6 % (2-11); NEUTROPHILS 64.8 % (40-80); PLATELET COUNT 171 10x3/uL (130-400); RBC 4.52 10x6/uL (4.00-5.40); RDW 14.2 % (11.5-14.5); WBC 6.8 10x3/uL (4.8-10.8)
[2018-12-24 10:32] LABS: ALBUMIN 3.6 g/dL (3.4-5.0); ALKALINE PHOSPHATASE 100 U/L (46-116); ALT (SGPT) 22 U/L (10-68); BILIRUBIN - TOTAL 0.53 mg/dL (0.2-1.3); CALC OSMOLALITY 287 mosm/kg (275-300); CALCIUM 9.3 mg/dL (8.5-10.1); CARBON DIOXIDE 28.6 mmol/L (21.0-32.0); CHLORIDE - SERUM 104 mmol/L (98-107); CREATININE - SERUM 0.9 mg/dL (0.6-1.3); GLUCOSE 94 mg/dL (74-106); POTASSIUM - SERUM 4.1 mmol/L (3.5-5.1); SODIUM 142 mmol/L (136-145); UREA NITROGEN 27 mg/dL (7-18); eGFR NON AFRICAN AMERICAN 63 mL/min (90-120)
[2018-12-24 10:44] LABS: CKMB 1.2 U/L (0.0-3.6); CREATINE KINASE 75 UL (21-215); MAGNESIUM - SERUM 2.1 mg/dL (1.8-2.4); PRO BNP 174 pg/mL (0-450); TROPONIN-I < 0.017 ng/mL (0.000-0.060)
[2018-12-24 10:53] LABS: APTT 23.3 SECONDS (22.8-39.4); INR 1.09 (0.85-1.17); PROTIME 13.6 SECONDS (11.6-15.0)
[2018-12-24 11:40] VITALS: BP 123/41
--- NOTE | 2018-12-24 14:38 | CN ---
PATIENT NAME:NICHOLAS WOLF MEDICAL RECORD: [id number] : 35 LOCATION:D.CAT ADMIT DATE: ACCOUNT: [id number] CONSULTING PHYSICIAN: LOC DIALLO MD REFERRING PHYSICIAN: LOC DIALLO MD DATE OF CONSULTATION: 12/24/2018 DIAGNOSES: 1. Unstable angina. 2. Coronary artery disease. 3. Previous coronary stenting. 4. Hypertension. 5. Hyperlipidemia. HISTORY: Mrs. Wolf presents with increasing angina in an unstable fashion. It has been going on for approximately a week, worsened dramatically over the past few days. Associated with this is increasing shortness of breath and dyspnea on exertion. These are same symptoms she has had when she has had stenting in the past. She has had stenting 3 years ago and 1-1/2 years ago. PHYSICAL EXAMINATION: GENERAL APPEARANCE: Well-nourished, well-developed, appears stated age. Level of distress, comfortable. PSYCHIATRIC: Mental status, alert, normal affect. Orientation, oriented to time, place and person. EYES: Lids and conjunctiva, noninjected. No discharge, no pallor. ENT: Lips, teeth, gums, normal dentition. Oropharynx, no cyanosis, no pallor. NECK: Carotid arteries, bilateral normal upstroke, no bruits, no thrills. JUGULAR VEINS: No jugular venous pressure or distention. CERVICAL LYMPH NODES: Nontender, nonenlarged. THYROID: Not enlarged. Nontender. No nodules. LUNGS: Respiratory effort, unlabored. CHEST: Normal curvature. No thoracic deformity. No chest wall tenderness. Percussion, resonant. Auscultation, clear. No wheezes, no rales, no rhonchi. CARDIOVASCULAR: Precordial exam, nondisplaced. No heaves or pericardial thrills. Rate and rhythm, regular. Heart sounds, normal S1, normal S2. No S3, no gallop, no rub. Systolic murmur, not heard. Diastolic murmur, not heard. EXTREMITIES: No cyanosis, no edema. Peripheral pulses, full and equal in all extremities, except as noted. No bruits appreciated. ABDOMEN: Soft, nondistended. Normal aorta. No bruit. Nontender. No masses. Liver, nontender, no hepatomegaly. Spleen, nontender, no splenomegaly. MUSCULOSKELETAL: No joint tenderness. No joint swelling. No erythema. NEUROLOGICAL: Normal gait, normal strength, normal tone. SKIN: Warm and dry. OVERALL IMPRESSION: Chest pain in an unstable fashion, progressive. We will proceed with coronary angiography. Further care depends upon findings of the angiography. TRANSINT:[id number] Voice Confirmation ID: [id number] DOCUMENT ID: [id number] CONSULT REPORT [id number] NICHOLAS WOLF JEFFREY MD at 1438 CC: [id number] DICTATION DATE: 12/24/18 1039 PSYCHOLOGICAL ANTHROPOLOGIST: 12/24/18 1232 REG [facility] [address] [place] [id number]
--- NOTE | 2018-12-24 15:05 | NUR ---
2L NC, NO RESP DISTRESS. RIGHT GROIN 5F EXOSEAL CDI,NO BLEEDING OR HEMATOMA NOTED. NO C/O PAIN OR NAUSEA. VSS. FAMILY AT BEDSIDE, CALL LIGHT WITHIN REACH.
--- NOTE | 2018-12-24 15:57 | NUR ---
HOB ELEVATED 30 DEGREES. RIGHT GROIN 5F EXOSEAL AMAYA, NO BLEEDING OR HEMATOMA NOTED. SIPPING ON DRINK AND EATING SANDWICH WITH NO C/O OF NAUSEA. VSS. WILL CONTINUE TO MONITOR.
--- NOTE | 2018-12-24 16:35 | NUR ---
RIGHT PIV D/C'D WITH CATHETER INTACT, BAND AID TO SITE. UP TO BEDSIDE TO GET DRESSED.
--- NOTE | 2018-12-24 16:42 | NUR ---
DISCHARGE INSTRUCTIONS GIVEN, VERBALIZED UNDERSTANDING.
--- NOTE | 2018-12-24 16:55 | NUR ---
TAKEN OUT VIA WHEELCHAIR BY CATH STACKER OPERATOR. LEFT FACILITY WITH FAMILY AND ALL PERSONAL BELONGINGS.
== END 2018-12-24 16:55 | disposition home or self-care (01) ==
LOC: D.CATH 09:19 → D.ER 09:19 → EDSTATUS 11:27 → D.CATH 16:55
PROVIDERS: Emergency Medicine; ATTEND Internal Medicine Interventional Cardiology
DX: I25.119 Atherosclerotic heart disease of native coronary artery with unspecified angina pectoris (principal); Z95.5 Presence of coronary angioplasty implant and graft; Z01.812 Encounter for preprocedural laboratory examination

== ENCOUNTER 2019-09-20 06:56 | Emergency (ER) | payer MEDICARE, BC ==
[~2019-09-20] VITALS: Ht 163.8 cm; Wt 83.9 kg
[~2019-09-20 06:56] MED LIST changes: +BAYER CHEWABLE81 MG PO; +DETROL LA4 MG PO; +I-CAPS; +KLOR-CON M2020 MEQ PO; +MAXZIDE 75/501 TAB PO; +VITAMIN D2000 UNIT PO
[2019-09-20 07:04] VITALS: Ht 163.8 cm; Wt 83.9 kg
[2019-09-20] MEDS ORDERED: CYCLOBENZAPRINE10 MG PO (08:12)
[2019-09-20] MEDS ORDERED: ACETAMINOPHEN500 M1 PO (08:12)
[2019-09-20 08:41] VITALS: BP 122/68
== END 2019-09-20 08:42 | disposition home or self-care (01) ==
LOC: D.ER 06:56
DX: M54.2 Cervicalgia (principal); M79.18 Myalgia, other site; M54.6 Pain in thoracic spine; R51 Headache; W19.XXXA Unspecified fall, initial encounter; Y93.9 Activity, unspecified; Y92.9 Unspecified place or not applicable; Z86.73 Personal history of transient ischemic attack (TIA), and cerebral infarction without residual deficits; I10 Essential (primary) hypertension; I25.10 Atherosclerotic heart disease of native coronary artery without angina pectoris

== ENCOUNTER 2020-02-24 13:26 | Emergency (ER) | payer MEDICARE, BC ==
[~2020-02-24] VITALS: Ht 163.8 cm; Wt 95.5 kg
[~2020-02-24 13:26] MED LIST changes: +ACETAMINOPHEN500 M1 PO; +CYCLOBENZAPRINE10 MG PO
[2020-02-24 14:01] VITALS: Ht 163.8 cm; Wt 95.5 kg
[2020-02-24 14:24] LABS: CALC OSMOLALITY 281 mosm/kg (275-300); CALCIUM 9.5 mg/dL (8.5-10.1); CARBON DIOXIDE 29.3 mmol/L (21.0-32.0); CHLORIDE - SERUM 105 mmol/L (98-107); CREATININE - SERUM 1.1 mg/dL (0.6-1.3); GLUCOSE 101 mg/dL (74-106); POTASSIUM - SERUM 3.9 mmol/L (3.5-5.1); SODIUM 140 mmol/L (136-145); UREA NITROGEN 22 mg/dL (7-18); eGFR NON AFRICAN AMERICAN 50 mL/min (90-120)
[2020-02-24 14:29] LABS: INR 1.08 (0.85-1.17)
[2020-02-24 14:30] LABS: APTT 47.1 SECONDS (22.8-39.4)
[2020-02-24 14:37] LABS: BASOPHILS 0.6 % (0-2); EOSINOPHILS 2.8 % (0-7); HEMATOCRIT 40.6 % (36.0-48.0); HEMOGLOBIN 13.1 g/dL (12-16); IMMATURE GRANULOCYTES 0.2 % (0-5); LYMPHOCYTES 31.5 % (15-50); MCH 30.7 pg (26.0-34.0); MCHC 32.3 g/dL (31.0-37.0); MCV 95.1 fL (80.0-100.0); MEAN PLATELET VOLUME 9.7 fL (7.4-10.4); MONOCYTES 11.8 % (2-11); NEUTROPHILS 53.1 % (40-80); RBC 4.27 10x6/uL (4.00-5.40); WBC 5.3 10x3/uL (4.8-10.8)
[2020-02-24 14:39] LABS: ALBUMIN 3.6 g/dL (3.4-5.0); ALKALINE PHOSPHATASE 100 U/L (30-120); ALT (SGPT) 27 U/L (10-68); BILIRUBIN - TOTAL 0.34 mg/dL (0.2-1.3); CKMB 2.6 U/L (0.0-3.6); CREATINE KINASE 138 UL (21-215); MAGNESIUM - SERUM 2.1 mg/dL (1.8-2.4); PLATELET COUNT 212 10x3/uL (130-400); PROTEIN - SERUM 7.3 g/dL (6.4-8.2); THYROID STIMULATING HORMONE 0.87 uIU/mL (0.36-3.74); TROPONIN-I < 0.017 ng/mL (0.000-0.060)
[2020-02-24 16:10] LABS: BILIRUBIN NEGATIVE (NEGATIVE); GLUCOSE NEGATIVE (NEGATIVE); KETONE NEGATIVE (NEGATIVE); NITRITE NEGATIVE (NEGATIVE); UROBILINOGEN NORMAL (NORMAL)
[2020-02-24 16:11] LABS: BACTERIA MODERATE /hpf (NEGATIVE); EPITHELIAL CELLS 0-5 /hpf (0-5); RED CELLS - URINE OCC /hpf (0-5)
[2020-02-24] MEDS ORDERED: ASPIRIN325 MG PO (16:21)
[2020-02-24] MEDS ORDERED: MACROBID100 MG PO (16:21)
[2020-02-24 17:16] VITALS: BP 137/86
== END 2020-02-24 17:18 | disposition home or self-care (01) ==
LOC: D.ER 13:26
PROVIDERS: Family Medicine
DX: G45.9 Transient cerebral ischemic attack, unspecified (principal); N39.0 Urinary tract infection, site not specified; I10 Essential (primary) hypertension; R53.83 Other fatigue

== ENCOUNTER 2020-02-26 09:00 | Outpatient (CLI) | payer MEDICARE, BC ==
[2020-02-24 14:01] VITALS: BMI 35.5
[~2020-02-26 09:00] MED LIST changes: +ASPIRIN325 MG PO; +MACROBID100 MG PO
== END 2020-02-26 10:00 | disposition home or self-care (01) ==
LOC: D.MAMMO 09:00
PROVIDERS: ATTEND Family Medicine
DX: Z12.31 Encounter for screening mammogram for malignant neoplasm of breast (principal)

== ENCOUNTER 2020-04-12 08:24 | Inpatient (IN) | payer MEDICARE, BC ==
[~2020-04-12] VITALS: Ht 163.8 cm; Wt 90.7 kg
--- NOTE | 2020-04-12 08:50 | NUR ---
URINE SPECIMEN AND WOUND CULTURE SENT TO LAB
[2020-04-12 08:58] LABS: HEMATOCRIT 38.5 % (36.0-48.0); HEMOGLOBIN 12.4 g/dL (12-16); LYMPHOCYTES 26.7 % (15-50); MCH 29.7 pg (26.0-34.0); MCHC 32.2 g/dL (31.0-37.0); MCV 92.1 fL (80.0-100.0); MEAN PLATELET VOLUME 9.4 fL (7.4-10.4); NEUTROPHILS 59.8 % (40-80); RBC 4.18 10x6/uL (4.00-5.40); RDW 13.7 % (11.5-14.5)
[2020-04-12 08:59] LABS: ANION GAP 12.2 mmol/L (8-16); CALCIUM 9.4 mg/dL (8.5-10.1); CARBON DIOXIDE 26.6 mmol/L (21.0-32.0); CREATININE - SERUM 1.4 mg/dL (0.6-1.3); POTASSIUM - SERUM 3.8 mmol/L (3.5-5.1)
[2020-04-12 09:00] LABS: PLATELET COUNT 280 10x3/uL (130-400)
[2020-04-12 09:05] LABS: ALBUMIN 3.2 g/dL (3.4-5.0); BILIRUBIN - TOTAL 0.33 mg/dL (0.2-1.3); PROTEIN - SERUM 7.2 g/dL (6.4-8.2)
[2020-04-12 09:05] LABS: BILIRUBIN NEGATIVE (NEGATIVE); GLUCOSE NEGATIVE (NEGATIVE); KETONE NEGATIVE (NEGATIVE); NITRITE NEGATIVE (NEGATIVE); UROBILINOGEN NORMAL (NORMAL)
[2020-04-12 09:13] VITALS: BP 120/58
--- NOTE | 2020-04-12 09:20 | NUR ---
ULTRA SOUND HERE TO SEE PT
[2020-04-12 09:27] LABS: THYROID STIMULATING HORMONE 0.35 uIU/mL (0.36-3.74)
--- NOTE | 2020-04-12 09:33 | NUR ---
XRAY IN ROOM.
[2020-04-12 09:45] VITALS: BP 134/55
--- NOTE | 2020-04-12 11:00 | NUR ---
PATIENT RECEIVED TO ROOM WITH DR. NETTLES PRESENT. ERRYTHEMA AND PURULENT DRAINAGE NOTED TO RIGHT LATERAL ANKLE WITH PEDAL PULSES NOTED. DENIES ANY PAIN OR DISCOMFORT AT THIS TIME. IV INTACT TO LEFT FOREARM W/O ANY S/S OF INFECTION/INFILTRATION. AMBULATES TO BATHROOM W/O ASSSIT.
[2020-04-12 13:39] VITALS: BP 131/46; BMI 33.8
[2020-04-12 16:07] VITALS: BP 113/40
[2020-04-12 20:25] VITALS: BP 135/45
[2020-04-13 05:05] LABS: HEMATOCRIT 34.2 % (36.0-48.0); HEMOGLOBIN 11.2 g/dL (12-16); LYMPHOCYTES 31.7 % (15-50); MCH 30.1 pg (26.0-34.0); MCHC 32.7 g/dL (31.0-37.0); MCV 91.9 fL (80.0-100.0); MEAN PLATELET VOLUME 8.9 fL (7.4-10.4); NEUTROPHILS 57.3 % (40-80); PLATELET COUNT 238 10x3/uL (130-400); RBC 3.72 10x6/uL (4.00-5.40); RDW 13.5 % (11.5-14.5); WBC 5.2 10x3/uL (4.8-10.8)
[2020-04-13 05:10] VITALS: BP 130/62
[2020-04-13 05:19] LABS: ANION GAP 6.4 mmol/L (8-16); CALCIUM 8.3 mg/dL (8.5-10.1); CARBON DIOXIDE 31.7 mmol/L (21.0-32.0); CREATININE - SERUM 1.2 mg/dL (0.6-1.3); MAGNESIUM - SERUM 1.9 mg/dL (1.8-2.4); PHOSPHOROUS 3.8 mg/dL (2.5-4.9); POTASSIUM - SERUM 4.1 mmol/L (3.5-5.1)
--- NOTE | 2020-04-13 07:45 | NUR ---
PT AMBULATING IN ROOM FROM BATHROOM TO BED. NO ACUTE DISTRESS NOTED. PT REPORTS PAIN 3/10 AT THIS TIME. IV TO LEFT FOREARM WITH NS @ 75ML/HR INFUSING VIA PUMP. SITE WITHOUT REDNESS OR EDEMA. DENIES FURTHER NEEDS AT THIS TIME. CL WITHIN REACH. ENCOURAGED TO CALL WITH NEEDS. CONTINUE POC
--- NOTE | 2020-04-13 08:11 | NUR ---
PT A&O, SITTING UP IN BED. 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 TOLD PT WILL REPORT TO APPROPRIATE PERSON. HELD LOVENOX INJ DUE TO PENDING PROCEDURE. PT DENIES FURTHER NEEDS AT THIS TIME. BED LOW. BED RAILS X2. CL IN REACH. WILL CONTINUE TO MONITOR.
[2020-04-13 08:36] VITALS: BP 104/37
[2020-04-13 12:26] VITALS: Ht 163.8 cm; Wt 90.7 kg
[2020-04-13 16:15] VITALS: BP 124/44
--- NOTE | 2020-04-13 18:11 | NUR ---
PT RESTING IN BED FINISHING UP EVENING MEAL. NO ACUTE DISTRESS NOTED. DENIES FURTHER NEEDS AT THIS TIME. CL WITHIN REACH. ENCOURAGED TO CALL WITH NEEDS.
[2020-04-13 20:27] VITALS: BP 138/56
[2020-04-14 00:33] VITALS: BP 141/60
[2020-04-14 04:00] VITALS: BP 159/60
[2020-04-14 05:59] LABS: BASOPHILS 1.1 % (0-2); HEMOGLOBIN 10.7 g/dL (12-16); IMMATURE GRANULOCYTES 0.2 % (0-5); LYMPHOCYTES 23.7 % (15-50); MCH 29.2 pg (26.0-34.0); MCHC 31.5 g/dL (31.0-37.0); MCV 92.6 fL (80.0-100.0); MEAN PLATELET VOLUME 9.7 fL (7.4-10.4); MONOCYTES 11.1 % (2-11); NEUTROPHILS 59.9 % (40-80); PLATELET COUNT 239 10x3/uL (130-400); RBC 3.67 10x6/uL (4.00-5.40); RDW 13.8 % (11.5-14.5); WBC 5.3 10x3/uL (4.8-10.8)
--- NOTE | 2020-04-14 06:18 | NUR ---
I have reviewed this patient and I concur with the Shift Assessment completed by the Licensed Practical Nurse today this shift.
[2020-04-14 06:59] LABS: ANION GAP 9.5 mmol/L (8-16); CALCIUM 8.3 mg/dL (8.5-10.1); CARBON DIOXIDE 28.5 mmol/L (21.0-32.0); CREATININE - SERUM 1.2 mg/dL (0.6-1.3); MAGNESIUM - SERUM 1.8 mg/dL (1.8-2.4); PHOSPHOROUS 3.4 mg/dL (2.5-4.9)
[2020-04-14 09:01] VITALS: BP 145/69
[2020-04-14 12:37] VITALS: BP 123/50
[2020-04-14 16:47] VITALS: BP 116/42
[2020-04-14 20:00] VITALS: BP 123/57
--- NOTE | 2020-04-14 23:40 | NUR ---
REC'D. IN BED SUPINE POSITION EYES CLOSED RESP. DEEP AND EVEN.02 2L NC NO RESP DIFFICULTY OBSERVED WILL CONTINUE TO MONITOR FOR ANY CHGES NEUROVASCULAR STATUS AND FOLLOW CURRENT PLAN OF CARE
[2020-04-15] VITALS: BP 110/61
--- NOTE | 2020-04-15 03:49 | NUR ---
I have reviewed this patient and I concur with the Shift Assessment completed by the Licensed Practical Nurse today this shift.
[2020-04-15 04:00] VITALS: BP 100/45
[2020-04-15 05:24] LABS: BASOPHILS 0.9 % (0-2); HEMOGLOBIN 10.5 g/dL (12-16); LYMPHOCYTES 23.3 % (15-50); MCH 29.4 pg (26.0-34.0); MCHC 31.8 g/dL (31.0-37.0); MCV 92.4 fL (80.0-100.0); MEAN PLATELET VOLUME 9.6 fL (7.4-10.4); MONOCYTES 11.5 % (2-11); NEUTROPHILS 60.3 % (40-80); PLATELET COUNT 237 10x3/uL (130-400); RBC 3.57 10x6/uL (4.00-5.40); RDW 13.8 % (11.5-14.5); WBC 4.5 10x3/uL (4.8-10.8)
[2020-04-15 05:52] LABS: CALCIUM 8.3 mg/dL (8.5-10.1); CARBON DIOXIDE 29.8 mmol/L (21.0-32.0); CREATININE - SERUM 1.3 mg/dL (0.6-1.3); MAGNESIUM - SERUM 1.7 mg/dL (1.8-2.4); PHOSPHOROUS 3.4 mg/dL (2.5-4.9); POTASSIUM - SERUM 3.8 mmol/L (3.5-5.1)
--- NOTE | 2020-04-15 07:22 | NUR ---
PT RESTING IN BED. RESP EVEN AND UNLABORED. PT DENIES PAIN AT THIS TIME. IV TO LEFT WRIST NS @75ML/HR INFUSING VIA PUMP. SITE WITHOUT REDNESS OR EDEMA. DENIES FURTHER NEEDS AT THIS TIME. CL WITHIN REACH. ENCOURAGED TO CALL WITH NEEDS. CONTINUE POC
[2020-04-15 09:10] VITALS: BP 116/42
[2020-04-15] MEDS ORDERED: FLORAJEN3 CAPS460 MG PO (10:50)
[2020-04-15] MEDS ORDERED: KEFLEX500 MG PO (10:51)
--- NOTE | 2020-04-15 12:49 | MORECARE ---
CASE MANAGEMENT DISCHARGE SUMMARY PATIENT: NICHOLAS CARROLL UNIT: [id number] ADM DATE: 04/12/20 AGE: 84 : 35 SEX: F ROOM/BED: D.2204 AUTHOR: THIERRY PHELAN PHYSICIAN: REFERRING PHYSICIAN: JULIANA BORREGO MD DATE OF SERVICE: 04/15/20 Discharge Plan Patient Name: NICHOLAS CARROLL Facility: [facility]:[place] : 1935 Planned Disposition: Home or Self Care Anticipated Discharge Date: Discharge Date: Expected LOS: Initial Reviewer: [email or web address] Initial Review Date: 04/12/2020 Generated: 04/15/20 1:49 pm DCPIA - Discharge Planning Initial Assessment Updated by [email or web address]: Destiny Matute on 04/15/20 12:49 pm * How many steps to enter\exit or inside your home? * PCP perico * Pharmacy [facility] * Preadmission Environment Home with Family * ADLs Independent * Equipment CPAP * List name and contact numbers for known caregivers / representatives who currently or will assist patient after discharge: Agus Carroll [phone] * Verbal permission to speak to the caregivers and representatives has been obtained from the patient. N/A * Community resources currently utilized None * Additional services required to return to the preadmission environment? No * Can the patient safely return to the preadmission environment? Yes * Has this patient been hospitalized within the prior 30 days at any hospital? No Patient Name: NICHOLAS CARROLL Page 53810 at 1249 All edits/amendments must be made on the electronic document DICTATION DATE: 04/15/20 1249 [employer]PER[employer]OR [employer]: MANUELA 04/15/20 1249 RPT#: [id number] DC DATE: STATUS: ADM IN [facility] [address] [place] [address] END OF REPORT
--- NOTE | 2020-04-15 12:57 | MORECARE ---
CASE MANAGEMENT DISCHARGE SUMMARY PATIENT: NICHOLAS CARROLL UNIT: [id number] ADM DATE: 04/12/20 AGE: 84 : 35 SEX: F ROOM/BED: D.2204 AUTHOR: [email or web address] PHYSICIAN: REFERRING PHYSICIAN: JULIANA BORREGO MD DATE OF SERVICE: 04/15/20 Discharge Plan Patient Name: NICHOLAS CARROLL Facility: [facility]:[place] : 1935 Planned Disposition: Home or Self Care Anticipated Discharge Date: Discharge Date: Expected LOS: Initial Reviewer: [email or web address] Initial Review Date: 04/12/2020 Generated: 04/15/20 1:57 pm Comments DCP- Discharge Planning Updated by [email or web address]: Destiny Matute on 04/15/20 11:[address] Patient Name: NICHOLAS CARROLL Admission Status: ER Accout number: [id number] Admission Date: 04-12-2020 : 1935 Admission Diagnosis: Attending: YAKELIN Current LOS: 3 Anticipated DC Date: Planned Disposition: Home or Self Care Primary Insurance: MEDICARE A & B Discharge Planning Comments: CM met with patient to complete initial dc planning assessment. CM educated patient on the CM role and verbal consent given by patient to complete assessment. Patient lives at home with her spouse where she is independent with her care . At discharge patient plans to return home and feels this is a safe discharge. CM discussed availability of home health, rehab services, and medical equipment. She has a BIPAP from [facility] patient. [facility] warrant server and explained. Patient denied known discharge needs at this time. CM will continue to follow and will assist as needed with dc plans/needs. Appeals And Generalist Clerk: Destiny Matute DCPIA - Discharge Planning Initial Assessment Updated by [email or web address]: Destiny Matute on 04/15/20 12:49 pm * How many steps to enter\exit or inside your home? * PCP perico * Pharmacy [facility] * Preadmission Environment Home with Family * ADLs Independent * Equipment CPAP * List name and contact numbers for known caregivers / representatives who currently or will assist patient after discharge: Agus Carroll [phone] * Verbal permission to speak to the caregivers and representatives has been obtained from the patient. N/A * Community resources currently utilized None * Additional services required to return to the preadmission environment? No * Can the patient safely return to the preadmission environment? Yes * Has this patient been hospitalized within the prior 30 days at any hospital? No Coverage Notice Reviewer: [email or web address] Matt Matute Notice Issued Date-Time: 04/15/2020 12:35 Notice Type: IM Discharge Notice Notice Delivered To: Patient Relationship to Patient: Vocational Case Manager Name: Delivery Method: HAND - Hand Delivered Stacia Days: Prior Verbal Notification: Recipient Understood Notice: Yes Recipient Signature: Yes Med Rec Note Co-signed by Attending: Coverage Notice Comment: imm served Last DP export: 04/15/20 11:49 a Patient Name: NICHOLAS CARROLL Page [phone] at 1257 All edits/amendments must be made on the electronic document DICTATION DATE: 04/15/20 1257 SLEEVE SEWER: MANUELA 04/15/20 1257 RPT#: [id number] DC DATE: STATUS: ADM IN [facility] [address] [place] [address] END OF REPORT
--- NOTE | 2020-04-16 09:05 | MORECARE ---
CASE MANAGEMENT DISCHARGE SUMMARY PATIENT: NICHOLAS CARROLL UNIT: [id number] ADM DATE: 04/12/20 AGE: 84 : 35 SEX: F ROOM/BED: D.2204 AUTHOR: ZHANE,DOC PHYSICIAN: REFERRING PHYSICIAN: JULIANA BORREGO MD DATE OF SERVICE: 04/16/20 Discharge Plan Patient Name: NICHOLAS CARROLL Facility: [facility]:[place] : 1935 Planned Disposition: Home or Self Care Anticipated Discharge Date: Discharge Date: 04/15/2020 Expected LOS: 0 Initial Reviewer: [email or web address] Initial Review Date: 04/12/2020 Generated: 04/16/20 10:05 am Comments DCP- Discharge Planning Updated by [email or web address]: Destiny Matute on 04/15/20 11:[address] Patient Name: NICHOLAS CARROLL Admission Status: ER Accout number: [id number] Admission Date: 04-12-2020 : 1935 Admission Diagnosis: Attending: YAKELIN Current LOS: 3 Anticipated DC Date: Planned Disposition: Home or Self Care Primary Insurance: MEDICARE A & B Discharge Planning Comments: CM met with patient to complete initial dc planning assessment. CM educated patient on the CM role and verbal consent given by patient to complete assessment. Patient lives at home with her spouse where she is independent with her care . At discharge patient plans to return home and feels this is a safe discharge. CM discussed availability of home health, rehab services, and medical equipment. She has a BIPAP from [facility] patient. 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 Patient denied known discharge needs at this time. CM will continue to follow and will assist as needed with dc plans/needs. Accounting Manager Assistant Controller: Destiny Matute DCPIA - Discharge Planning Initial Assessment Updated by [email or web address]: Destiny Matute on 04/15/20 12:49 pm * How many steps to enter\exit or inside your home? * PCP [facility] * Pharmacy [facility] * Preadmission Environment Home with Family * ADLs Independent * Equipment CPAP * List name and contact numbers for known caregivers / representatives who currently or will assist patient after discharge: Agus Carroll [phone] * Verbal permission to speak to the caregivers and representatives has been obtained from the patient. N/A * Community resources currently utilized None * Additional services required to return to the preadmission environment? No * Can the patient safely return to the preadmission environment? Yes * Has this patient been hospitalized within the prior 30 days at any hospital? No Coverage Notice Reviewer: [email or web address] Matt Matute Notice Issued Date-Time: 04/15/2020 12:35 Notice Type: IM Discharge Notice Notice Delivered To: Patient Relationship to Patient: Product Marketing Executive Name: Delivery Method: HAND - Hand Delivered Stacia Days: Prior Verbal Notification: Recipient Understood Notice: Yes Recipient Signature: Yes Med Rec Note Co-signed by Attending: Coverage Notice Comment: imm served Last DP export: 04/15/20 11:57 a Patient Name: NICHOLAS CARROLL Page [id number] at 0905 All edits/amendments must be made on the electronic document DICTATION DATE: 04/16/20904 IV RN: MANUELA 04/16/20904 RPT#: [id number] DC DATE:04/15/20 STATUS: DIS IN [facility] [address] [place] [address] END OF REPORT
== END 2020-04-15 14:26 | disposition home or self-care (01) | DRG 603 ==
LOC: D.ER 08:24 → D.MS 10:17 → D.ER 10:25 → D.MS 04-15 14:26
PROVIDERS: Emergency Medicine; ADMIT Family Medicine; ATTEND Family Medicine
DX: L03.116 Cellulitis of left lower limb (principal); N17.9 Acute kidney failure, unspecified; T63.331A Toxic effect of venom of brown recluse spider, accidental (unintentional), initial encounter; G47.33 Obstructive sleep apnea (adult) (pediatric); E03.9 Hypothyroidism, unspecified; I10 Essential (primary) hypertension

== ENCOUNTER → 2021-03-30 09:45 | Outpatient (CLI) | payer MEDICARE, BC ==
[2020-04-13 12:26] VITALS: BMI 33.8
[~2021-03-30 09:45] MED LIST changes: +FLORAJEN3 CAPS460 MG PO; +KEFLEX500 MG PO
== END | disposition home or self-care (01) ==
LOC: D.MAMMO 03-16 09:00
PROVIDERS: ATTEND Family Medicine
DX: Z12.31 Encounter for screening mammogram for malignant neoplasm of breast (principal)